=== PATIENT | female | born 1970 | race Caucasian/White ===

== ENCOUNTER 2017-12-28 20:54 | Emergency (ER) | payer SELFPAY ==
[~2017-12-28] VITALS: Ht 154.9 cm; Wt 54.4 kg
[2017-12-28 21:08] VITALS: BP 135/82
[2017-12-28] MEDS: ORPHENADRINE CITRATE 60 MG/2 ML VIAL. IM ONE (21:40)
[2017-12-28] MEDS: traMADol 50 MG TABLET PO ONE (21:40)
[2017-12-28] MEDS: DEXAMETHASONE SOD PHOS 10 MG/ML VIAL IM ONE (21:40)
[2017-12-28] MEDS ORDERED: DICL50TA4 PO (21:54)
[2017-12-28] MEDS ORDERED: TRAM50TA PO (21:54)
[2017-12-28] MEDS ORDERED: ORPH-16 PO (21:54)
--- NOTE | 2017-12-28 21:55 | PHYS DOC ---
Past History Past Medical History: Angina Past Surgical History: , Other Alcohol Use: Rarely Drug Use: None Adult General Chief Complaint Chief Complaint: Neck Pain HPI HPI Patient is a 47-year-old female who presents with complaint of neck pain as well as upper and mid back pain primarily on the right that started yesterday. Patient indicates that she had woken up from sleep with pain in her neck. She states the pain is progressively gotten worse and now the pain extends from her neck to her right posterior shoulder and down to just below the shoulder blade. She rates pain at a 9 out of 10. She states that pain is worsened if she tries to move her neck. She denies any recent injury or heavy lifting. She denies any loss of bowel or bladder control and indicates that there are no radicular symptoms. Review of Systems Review of Systems Constitutional: Denies fever or chills [] Respiratory: Denies cough or shortness of breath [] Cardiovascular: No additional information not addressed in HPI [] Musculoskeletal: Complains of neck along with upper and mid back pain[] Integument: Denies rash or skin lesions [] Neurologic: Denies headache, focal weakness or sensory changes [] Current Medications Current Medications Current Medications Medications (Trade) Dose Ordered Sig/Jamel Start Time Stop Time Status Last Admin Dose Admin Dexamethasone Sodium Phosphate (Decadron) 10 mg 1X ONCE 12/28/17 21:30 12/28/17 21:31 DC 12/28/17 21:40 10 MG Orphenadrine Citrate (Norflex) 60 mg 1X ONCE 12/28/17 21:30 12/28/17 21:31 DC 12/28/17 21:40 60 MG Tramadol HCl (Ultram) 50 mg 1X ONCE 12/28/17 21:30 12/28/17 21:31 DC 12/28/17 21:40 50 MG Allergies Allergies Allergies Coded Allergies Type Severity Reaction Last Updated Verified ketorolac Allergy Severe Anaphylaxis 12/28/17 Yes Penicillins Allergy Mild HIVES 12/28/17 Yes sulfamethoxazole Allergy Mild HIVES 12/28/17 Yes trimethoprim Allergy Mild HIVES 12/28/17 Yes Physical Exam Physical Exam Constitutional: Well developed, well nourished, no acute distress, non-toxic appearance. [] Neck: Limited range of motion due to reported pain. There is mild spasm noted within the cervical strap musculature, primarily the sternocleidomastoid. [] Cardiovascular:Heart rate regular rhythm, no murmur [] Lungs & Thorax: Bilateral breath sounds clear to auscultation [] Skin: Warm, dry, no erythema, no rash. [] Back: There is tenderness to palpation along with palpable spasm noted to the right sided levator scapula, trapezius and rhomboid musculature. [] Neurologic: Alert and oriented X 3, normal motor function, normal sensory function, no focal deficits noted. [] Current Patient Data Vital Signs Vital Signs Date Time Temp Pulse Resp B/P (MAP) Pulse Ox O2 Delivery O2 Flow Rate FiO2 12/28/17 21:40 18 Room Air 12/28/17 21:08 98.4 79 100 EKG EKG [] Radiology/Procedures Radiology/Procedures [] Course & Med Decision Making Course & Med Decision Making Pertinent Labs and Imaging studies reviewed. (See chart for details) [] Dragon Disclaimer Dragon Disclaimer This electronic medical record was generated, in whole or in part, using a voice recognition dictation system. Departure Departure: Impression: Primary Impression: Muscle spasms of neck Additional Impression: Muscle spasm of back Disposition: HOME, SELF-CARE Condition: STABLE Referrals: PCP,NO (PCP) Patient Instructions: Muscle Cramps Scripts Tramadol Hcl (TRAMADOL HCL) 50 Mg Tablet 50 MG PO PRN Q6HRS PRN for PAIN, #15 TAB Prov: ELIZABETH RUEDA Jr. DO 12/28/17 Diclofenac Sodium (DICLOFENAC SODIUM) 50 Mg Tablet.dr 1 TAB PO BID PRN for PAIN, #20 TAB Prov: ELIZABETH RUEDA Jr. DO 12/28/17 Orphenadrine Citrate (ORPHENADRINE CITRATE) 100 Mg Tablet.er 1 TAB PO BID PRN for MUSCLE SPASMS, #14 TAB Prov: ELIZABETH RUEDA Jr. DO 12/28/17 Problem Qualifiers ELIZABETH RUEDA Jr. DO Dec 28, 2017 21:55
== END 2017-12-28 22:00 | disposition home or self-care (01) ==
LOC: ER 20:54
DX: M54.2 Cervicalgia (principal); M54.6 Pain in thoracic spine; Z98.890 Other specified postprocedural states; Z88.0 Allergy status to penicillin; Z88.1 Allergy status to other antibiotic agents; Z88.8 Allergy status to other drugs, medicaments and biological substances; Z88.2 Allergy status to sulfonamides
CPT/HCPCS: 96372; 99284; J1100; J2360

== ENCOUNTER 2018-04-29 22:06 | Emergency (ER) | payer SELFPAY ==
[~2018-04-29] VITALS: Ht 154.9 cm; Wt 56.7 kg
[~2018-04-29 22:06] MED LIST: DICL50TA4 PO; ORPH-16 PO; TRAM50TA PO
[2018-04-29] MEDS ORDERED: HYDROcodone/APAP 5/325MG 1 TAB TABLET PO ONE (22:45)
--- NOTE | 2018-04-29 23:36 | RAD ---
CT HEAD AND CERVICAL SPINE WO Clinical indications: FALL, HIT BACK OF HEAD NONCONTRAST HEAD CT Technique: Noncontrast axial cross sectional scanning of the head was performed. PQRS compliance Statement One or more of the following individualized dose reduction techniques were utilized for this study: 1. Automated exposure control 2. Adjustment of the mA and/or kV according to patient size 3. Use of iterative reconstruction technique Findings: No acute intracranial hemorrhage or midline shift or mass-effect or hydrocephalus or extra-axial fluid collection is seen. No focal hypodense area or sulci effacement is seen to indicate an acute infarct or edema radiographically. No skull fracture or pneumocephalus is seen. No opacification of the mastoid sinuses or the paranasal sinuses is seen. The maxillary sinuses are not completely seen in this study. Impression: No acute intracranial abnormality is seen. CERVICAL SPINE CT WITHOUT CONTRAST TECHNIQUE: Noncontrast helical CT scanning of the cervical spine was performed. Multiplanar 2-D reconstructions were generated. FINDINGS: No acute fracture or discitis or lytic process is evident. No perching of facet joints is evident. No prevertebral soft tissue is evident. IMPRESSION: No acute fracture. Electronically signed by: David White MD (04/29/2018 11:33 PM) [facility]
--- NOTE | 2018-04-29 23:43 | PHYS DOC ---
Past History Past Medical History: Angina Past Surgical History: , Tonsillectomy, Other Alcohol Use: Rarely Drug Use: None Adult General Chief Complaint Chief Complaint: MECHANICAL FALL HPI HPI Patient is a 47-year-old female who presents with complaint of injuries to her head, neck and left shoulder after slipping on soap in the bathtub. Patient states that she reached down to get her soap and her foot slipped and she fell, landing on a bottle of shampoo the drove up into her left axilla and also striking her left christianity area. She states that she had no loss of consciousness but does complain of some dizziness and also has headache and neck pain. She states the worst the pain is in her left shoulder and rates that pain at an 8 out of 10. She states that pain is worsened with movement of her shoulder and with movement of her neck. She states that nothing improves her pain. Review of Systems Review of Systems Constitutional: Denies fever or chills [] Respiratory: Denies cough or shortness of breath [] Cardiovascular: No additional information not addressed in HPI [] Musculoskeletal: Complains of neck and left shoulder pain [] Integument: Denies rash or skin lesions [] Neurologic: Complains of headache without focal weakness or sensory changes [] All other systems were reviewed and found to be within normal limits, except as documented in this note. Current Medications Current Medications Current Medications Medications (Trade) Dose Ordered Sig/Jamel Start Time Stop Time Status Last Admin Dose Admin Acetaminophen/ Hydrocodone Bitart (Lortab 5/325) 1 tab 1X ONCE 04/29/18 22:45 04/29/18 22:46 DC Allergies Allergies Allergies Coded Allergies Type Severity Reaction Last Updated Verified ketorolac Allergy Severe Anaphylaxis 12/28/17 Yes Penicillins Allergy Mild HIVES 12/28/17 Yes sulfamethoxazole Allergy Mild HIVES 12/28/17 Yes trimethoprim Allergy Mild HIVES 12/28/17 Yes Physical Exam Physical Exam Constitutional: Well developed, well nourished, no acute distress, non-toxic appearance. [] HENT: Normocephalic, atraumatic, bilateral external ears normal, oropharynx moist, no oral exudates, nose normal. [] Eyes: PERRLA, EOMI, conjunctiva normal, no discharge. [] Neck: Normal range of motion, with suboccipital tenderness. [] Cardiovascular: Regular rate and rhythm[] Lungs & Thorax: Bilateral breath sounds clear to auscultation [] Abdomen: Bowel sounds normal, soft, no tenderness. [] Skin: Warm, dry, no erythema, no rash. [] Extremities: Range of motion to left shoulder is decreased due to pain. There is tenderness to palpation in the left axilla. [] Neurologic: Alert and oriented X 3, no focal deficits noted. [] Current Patient Data Vital Signs Vital Signs Date Time Temp Pulse Resp B/P (MAP) Pulse Ox O2 Delivery O2 Flow Rate FiO2 04/29/18 22:10 98.2 80 18 99 Room Air EKG EKG [] Radiology/Procedures Radiology/Procedures [] Impressions: PROCEDURE: CT HEAD AND CERVICAL SPINE WO CT HEAD AND CERVICAL SPINE WO Clinical indications: FALL, HIT BACK OF HEAD NONCONTRAST HEAD CT Technique: Noncontrast axial cross sectional scanning of the head was performed. PQRS compliance Statement One or more of the following individualized dose reduction techniques were utilized for this study: 1. Automated exposure control 2. Adjustment of the mA and/or kV according to patient size 3. Use of iterative reconstruction technique Findings: No acute intracranial hemorrhage or midline shift or mass-effect or hydrocephalus or extra-axial fluid collection is seen. No focal hypodense area or sulci effacement is seen to indicate an acute infarct or edema radiographically. No skull fracture or pneumocephalus is seen. No opacification of the mastoid sinuses or the paranasal sinuses is seen. The maxillary sinuses are not completely seen in this study. Impression: No acute intracranial abnormality is seen. CERVICAL SPINE CT WITHOUT CONTRAST TECHNIQUE: Noncontrast helical CT scanning of the cervical spine was performed. Multiplanar 2-D reconstructions were generated. FINDINGS: No acute fracture or discitis or lytic process is evident. No perching of facet joints is evident. No prevertebral soft tissue is evident. IMPRESSION: No acute fracture. Electronically signed by: David White MD (04/29/2018 11:33 PM) [facility] Course & Med Decision Making Course & Med Decision Making Pertinent Labs and Imaging studies reviewed. (See chart for details) [] Dragon Disclaimer Dragon Disclaimer This electronic medical record was generated, in whole or in part, using a voice recognition dictation system. Departure Departure: Impression: Primary Impression: Left shoulder strain Additional Impression: Cervical strain Disposition: HOME, SELF-CARE Condition: STABLE Referrals: PCP,NO (PCP) Patient Instructions: Cervical Sprain, Shoulder Sprain Scripts Orphenadrine Citrate (ORPHENADRINE CITRATE) 100 Mg Tablet.er 1 TAB PO BID PRN for MUSCLE SPASMS, #20 TAB Prov: ELIZABETH RUEDA Jr. DO 04/29/18 Tramadol Hcl (TRAMADOL HCL) 50 Mg Tablet 50 MG PO PRN Q6HRS PRN for PAIN, #12 TAB Prov: ELIZABETH RUEDA Jr. DO 04/29/18 Problem Qualifiers Primary Impression: Left shoulder strain Encounter type: initial encounter Qualified Codes: S46.912A - Strain of unspecified muscle, fascia and tendon at shoulder and upper arm level, left arm , initial encounter Additional Impression: Cervical strain Encounter type: initial encounter Qualified Codes: S16.1XXA - Strain of muscle, fascia and tendon at neck level, initial encounter ELIZABETH RUEDA Jr., DO Apr 29, 2018 23:43
[2018-04-29 23:51] VITALS: BP 119/81
[2018-04-29] MEDS ORDERED: ORPH-16 PO (23:55)
[2018-04-29] MEDS ORDERED: TRAM50TA PO (23:55)
--- NOTE | 2018-04-30 00:25 | RAD ---
Indication:fell onto left shoulder TECHNIQUE: 3 views of the left shoulder COMPARISON:None FINDINGS/ impression: No acute fracture or dislocation. Visualized left lung is clear. Electronically signed by: Constantine Norman DO (04/30/2018 12:23 AM) [id number]
== END 2018-04-30 00:07 | disposition home or self-care (01) ==
LOC: ER 22:06
DX: S16.1XXA Strain of muscle, fascia and tendon at neck level, initial encounter (principal); S46.912A Strain of unspecified muscle, fascia and tendon at shoulder and upper arm level, left arm, initial encounter; S09.8XXA Other specified injuries of head, initial encounter; Z88.0 Allergy status to penicillin; Z88.2 Allergy status to sulfonamides; Z88.1 Allergy status to other antibiotic agents; Z88.8 Allergy status to other drugs, medicaments and biological substances; W01.198A Fall on same level from slipping, tripping and stumbling with subsequent striking against other object, initial encounter; Y93.89 Activity, other specified; Y92.091 Bathroom in other non-institutional residence as the place of occurrence of the external cause; Y99.8 Other external cause status
CPT/HCPCS: 70450; 72125; 73030; 99284-25